=== PATIENT | female | born 1990 | race American Indian/Alaskan Native ===

== ENCOUNTER 2021-01-05 19:45 | Emergency (ER) | payer SELFPAY ==
[2021-01-05 22:20] VITALS: BP 111/68
--- NOTE | 2021-01-05 22:30 | Emergency Department Report ---
ED Female HPI - General Chief complaint: Abdominal Pain Stated complaint: ABD PAIN Source: patient Mode of arrival: Ambulatory Limitations: No Limitations - History of Present Illness Initial comments: Chief complaint: "I am . I am having pressure." HPI: This is a 28-year-old female G1, P0 LMP December 22 who presents with bilateral pelvic groin pain lower abdominal pain. She has had nausea. She has pressure sensation. She feels as if someone is "pulling in her groin. She had a positive home test. Has not yet established care. She denies fever, vomiting, vaginal bleeding. Pain does not change with movement position change or walking. MD Complaint: pelvic pain, other (Lower abdominal pain) -: Gradual, days(s) (6 days since last Monday) Severity: moderate Quality: dull, other (Pulling sensation pressure sensation) Consistency: constant Improves with: none Worsens with: none Associated Symptoms: other (Nausea) - Related Data Previous Rx's Medication Instructions Recorded Last Taken Type Ondansetron [Zofran Odt] 4 mg PO Q8HR PRN #20 tab.rapdis 01/06/21 Unknown Rx Allergies Allergy/AdvReac Type Severity Reaction Status Date / Time No Known Allergies Allergy Verified 01/05/21 22:20 ED Review of Systems ROS: Stated complaint: ABD PAIN Other details as noted in HPI Comment: All other systems reviewed and negative Eyes: denies: as per HPI Respiratory: denies: cough, shortness of breath Gastrointestinal: abdominal pain, nausea Genitourinary: denies: urgency, dysuria, frequency, hematuria, discharge Skin: denies: rash, lesions ED Past Medical Hx - Past Medical History Previous Medical History?: No - Surgical History Past Surgical History?: No - Social History Smoking Status: Never Smoker Substance Use Type: None - Medications Home Medications: Home Medications Medication Instructions Recorded Confirmed Last Taken Type Ondansetron [Zofran Odt] 4 mg PO Q8HR PRN #20 tab.rapdis 01/06/21 Unknown Rx ED Physical Exam - General Limitations: No Limitations General appearance: alert, in no apparent distress, other (brisk steady gait, appears comfortable, appears nontoxic) - Head Head exam: Present: atraumatic, normocephalic - Eye Eye exam: Present: normal appearance - ENT ENT exam: Present: mucous membranes moist - Neck Neck exam: Present: normal inspection, full ROM - Respiratory Respiratory exam: Present: normal lung sounds bilaterally. Absent: respiratory distress, wheezes, rales, rhonchi - Cardiovascular Cardiovascular Exam: Present: regular rate, normal rhythm, normal heart sounds. Absent: systolic murmur, diastolic murmur, rubs, gallop - GI/Abdominal GI/Abdominal exam: Present: soft, normal bowel sounds. Absent: distended, tenderness, guarding, rebound - Extremities Exam Extremities exam: Present: normal inspection - Back Exam Back exam: Present: normal inspection. Absent: full ROM, tenderness, CVA tenderness (R), CVA tenderness (L) - Neurological Exam Neurological exam: Present: alert, oriented X3 - Psychiatric Psychiatric exam: Present: normal affect, normal mood - Skin Skin exam: Present: warm, dry, intact, normal color. Absent: rash ED Course Vital Signs 01/05/21 01/05/21 22:18 22:20 Temperature 97.9 F Pulse Rate 64 Blood Pressure 111/68 O2 Sat by Pulse 100 Oximetry ED Medical Decision Making - Lab Data Result diagrams: 01/05/21 22:27 01/05/21 22:27 Laboratory Results - last 24 hr 01/05/21 01/05/21 01/05/21 22:27 22:27 22:27 WBC 11.2 H RBC 3.96 Hgb 10.9 Hct 33.3 MCV 84 MCH 28 MCHC 33 RDW 14.9 Plt Count 314 Lymph % (Auto) 29.8 [place] % (Auto) 11.2 H Eos % (Auto) 3.2 Baso % (Auto) 0.9 Lymph # (Auto) 3.3 [place] # (Auto) 1.3 H Eos # (Auto) 0.4 Baso # (Auto) 0.1 Seg Neutrophils % 54.9 Seg Neutrophils # 6.1 Sodium 135 L Potassium 4.0 Chloride 101.9 Carbon Dioxide 26 Anion Gap 11 BUN 6 L Creatinine 0.4 L Estimated GFR > 60 BUN/Creatinine Ratio 15 Glucose 95 Calcium 8.9 HCG, Quant [id number] H - Radiology Data Radiology results: report reviewed Patient Name: MILIND MALAVE Gender: Female Date of : 1990 Referring Provider: AGUEDA CHARLES Organization: [facility] Accession Number: [id number] Requested Date: January 05, 2021 22:24 Report Status: Final Requested Procedure: 1 Procedure Description: US OB <= 14 weeks fetus Modality: US Findings Reporting MD: Bakari Caraballo Dictation Time: January 05, 2021 23:10 Chair Frame Builder: Not available Contracting Manager Date: OB ultrasound INDICATION: Pelvic pain FINDINGS: Right ovary measures 3.8 x 2.2 x 2.4 cm. Left ovary measures 3.3 x 1.4 x 2.0 cm. There is a single live intrauterine . Uterus measures 7.7 x 5.2 x 7.5 cm. Yolk sac pole appears normal. Gestational sac measures 32.9 mm measuring 8 weeks 3 days. [place]-rump length 17.7 mm measuring 8 weeks 2 days. IMPRESSION: Single live intrauterine with heart rate of 176. Signer Name: Bakari Caraballo MD Signed: 01/05/2021 11:10 PM Workstation Name: [id number] - Medical Decision Making Normal , with liveIUP confirmed by ultrasound heart rate 176 bpm EGA 8 weeks 3 days. Patient has only mild symptoms of pressure sensation nausea. Patient given miscarriage precautions: She understands return for vaginal bleeding severe pain vomiting. Prescribed Zofran as needed for nausea. CBC chemistry unremarkable. hCG appropriately elevated. No abdominal tenderness or peritoneal signs indicate acute inflammatory or obstructive process Critical care attestation.: If time is entered above; I have spent that time in minutes in the direct care of this critically ill patient, excluding procedure time. ED Disposition Clinical Impression: First trimester , Abdominal pain affecting , Morning sickness Disposition: HOME / SELF CARE / HOMELESS Is pt being admited?: No Does the pt Need Aspirin: No Condition: Stable Instructions: Abdominal Pain (ED), Morning Sickness, [id number], Abdominal Pain During , [id number] Additional Instructions: Your estimated due date is August 15, 2021 Prescriptions: Ondansetron [Zofran Odt] 4 mg PO Q8HR PRN #20 tab.rapdis PRN Reason: Nausea Referrals: NUSRAT TOWNSEND MD [Staff Physician] - 3-5 Days Forms: Work/School Release Form(ED)
[2021-01-05 22:43] LABS: Basophils # (Auto) 0.1 K/mm3 (0.0-0.1); Basophils % (Auto) 0.9 % (0.0-1.8); Eosinophils # (Auto) 0.4 K/mm3 (0.0-0.4); Eosinophils % (Auto) 3.2 % (0.0-4.3); Hematocrit 33.3 % (30.3-42.9); Hemoglobin 10.9 gm/dl (10.1-14.3); Lymphocytes # (Auto) 3.3 K/mm3 (1.2-5.4); Lymphocytes % (Auto) 29.8 % (13.4-35.0); Mean Corpuscular HGB Conc 33 % (30-34); Mean Corpuscular Volume 84 fl (79-97); Monocytes # (Auto) 1.3 K/mm3 (0.0-0.8); Monocytes % (Auto) 11.2 % (0.0-7.3); Platelet Count 314 K/mm3 (140-440); Red Blood Count 3.96 M/mm3 (3.65-5.03); Red Cell Distribution Width 14.9 % (13.2-15.2)
[2021-01-05 23:00] LABS: BUN/Creatinine Ratio 15; Blood Urea Nitrogen 6 mg/dL (7-17); Calcium 8.9 mg/dL (8.4-10.2); Hemolysis Index 1
--- NOTE | 2021-01-06 00:15 | Ultrasound Report ---
OB ultrasound INDICATION: Pelvic pain FINDINGS: Right ovary measures 3.8 x 2.2 x 2.4 cm. Left ovary measures 3.3 x 1.4 x 2.0 cm. There is a single live intrauterine . Uterus measures 7.7 x 5.2 x 7.5 cm. Yolk sac pole appears normal. Gestational sac measures 32.9 mm measuring 8 weeks 3 days. [place]-rump length 17.7 mm measurin g 8 weeks 2 days. IMPRESSION: Single live intrauterine with heart rate of 176. Signer Name: Bakari Caraballo MD Signed: 01/06/2021 12:10 AM Workstation Name: [id number]
== END 2021-01-06 00:29 | disposition home or self-care (01) ==
LOC: ED 19:45
DX: O26.891 Other specified pregnancy related conditions, first trimester (principal); R10.30 Lower abdominal pain, unspecified; R10.2 Pelvic and perineal pain; Z3A.08 8 weeks gestation of pregnancy
CPT/HCPCS: 36415; 76801; 80048; 84702; 85025; 99284